=== PATIENT | female | born 1980 | race Two or more races ===

== ENCOUNTER 2016-09-09 23:33 | Emergency (ER) | payer MEDICAID, OTHER ==
[~2016-09-09] VITALS: Ht 139.7 cm; Wt 63.5 kg
[2016-09-10 00:29] LABS: Basophils # (auto) 0.1 uL; Eosinophils # (auto) 0.1 uL; Eosinophils % (auto) 1.2 % (0.0-7.0); Hematocrit 44.1 % (36.0-46.0); Hemoglobin 14.6 g/dL (12.2-16.2); Lymphocytes # (auto) 2.4 uL; Lymphocytes % (auto) 36.9 % (10.0-50.0); Mean Corpuscular Hemoglobin 29.2 pg (28.0-32.0); Mean Corpuscular Volume 88.5 fL (80.0-100.0); Mean Platelet Volume 9.1 fL (7.4-10.4); Monocytes # (auto) 0.7 uL; Monocytes % (auto) 10.9 % (0.0-12.0); Neutrophils # (auto) 3.2 uL; Platelet Count (auto) 267 10^3/uL (140-450); Red Cell Distribution Width 11.4 % (11.6-16.0); White Blood Cell 6.5 10^3/uL (4.4-10.8)
[2016-09-10 01:00] LABS: Albumin 3.5 g/dL (3.4-5.0); BUN/Creatinine Ratio 9.9; Calcium 8.5 mg/dL (8.5-10.1); Magnesium 2.2 mg/dL (1.6-2.6); Potassium 3.3 mmol/L (3.5-5.1)
[2016-09-10 01:03] LABS: Bilirubin, Total 0.4 mg/dL (0.2-1.0); Total Protein 7.9 g/dL (6.4-8.2)
[2016-09-10] MEDS ORDERED: SODIUM CHLORIDE 0.9% 1,000 ML IVB ONE (04:10)
[2016-09-10] MEDS ORDERED: HYDROmorphone HCL 2 MG/ML VL IV ONE (04:15)
[2016-09-10] MEDS ORDERED: ONDANSETRON HCL 4 MG/2 ML VIAL IV ONE (04:15)
[2016-09-10 04:32] LABS: Urine RBC None Seen /hpf (0 - 4)
[2016-09-10 04:38] LABS: Amylase 89 U/L (25-115)
[2016-09-10 04:43] LABS: Urine Bilirubin POSITIVE (Negative); Urine Blood Negative /uL (Negative); Urine Color Yellow (Yellow); Urine Glucose Normal (Normal); Urine Hyaline Cast FEW /lpf (0 - 2); Urine Ketone 1+ (Negative); Urine Mucus MODERATE (None Seen); Urine Nitrite Negative (Negative); Urine Squamous Epithelial Cell MOD /hpf (<5)
[2016-09-10 06:27] VITALS: BP 105/66
== END 2016-09-10 06:37 | disposition home or self-care (01) ==
LOC: ER 23:33
DX: K62.89 Other specified diseases of anus and rectum (principal)
CPT/HCPCS: 36415; 74176; 80053; 81001; 82150; 83690; 83735; 84702; 85025; 96361; 96374; 96375; 99285; J1170; J2405; J7030

== ENCOUNTER 2024-09-29 23:05 | Emergency (ER) | payer MEDICAID, OTHER ==
[~2024-09-29] VITALS: Ht 139.7 cm; Wt 68.1 kg
[~2024-09-29 23:05] MED LIST: CEPH250C PO; IBUP-1454 PO
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
[2024-09-30] MEDS ORDERED: TIZA-142 PO (02:27)
[2024-09-30] MEDS ORDERED: METH4PAK PO (02:27)
[2024-09-30 02:47] VITALS: O2SAT 99
[2024-09-30 02:50] VITALS: BP 155/89; PULSE 71; RESP 20; TEMP 97.6; O2SAT 98
== END 2024-09-30 02:49 | disposition home or self-care (01) ==
LOC: ER 23:05
DX: S39.012A Strain of muscle, fascia and tendon of lower back, initial encounter (principal); S13.4XXA Sprain of ligaments of cervical spine, initial encounter; S20.219A Contusion of unspecified front wall of thorax, initial encounter; G44.309 Post-traumatic headache, unspecified, not intractable; Z79.899 Other long term (current) drug therapy; V49.9XXA Car occupant (driver) (passenger) injured in unspecified traffic accident, initial encounter; Y93.89 Activity, other specified; Y92.488 Other paved roadways as the place of occurrence of the external cause; Y99.8 Other external cause status
CPT/HCPCS: 72040; 72100